=== PATIENT | male | born 1960 | race Caucasian/White ===

== ENCOUNTER 2017-09-26 07:19 | Observation (INO) | payer OTHER ==
[~2017-09-26 07:19] MED LIST: Buffered Lidocaine 0.9% SYRIN* 5 ML/SYR SYRINGE INTRADERM ONE; Famotidine TAB* 20 MG PO ONE
[2017-09-26] MEDS ORDERED: ceFAZolin 2 GM PREMIX (*) 2 GM/50 ML BAG IVPB ONE (07:44)
[2017-09-26] MEDS ORDERED: Famotidine IV* 10 MG/ML 2 ML (20 mg) ONE (07:44)
[2017-09-26] MEDS ORDERED: Metoclopramide IV* 5 MG/ML 2 ML VIAL ONE (08:00)
[2017-09-26] MEDS ORDERED: Ondansetron ODT TAB* 4 MG ONE (08:26)
[2017-09-26] MEDS ORDERED: Propofol* 10 MG/ML 20 ML BTL IV PUSH ONE ×2 (08:26→10:05)
[2017-09-26] MEDS ORDERED: Dexamethasone IV* 4 MG/ML 1 ML (4 MG) ONE (08:26)
[2017-09-26] MEDS ORDERED: Lidocaine 2% PF * 5 ML VIAL ONE (08:26)
[2017-09-26] MEDS ORDERED: Artificial Tear OPHTH.OINT* 3.5 GM ONE (08:26)
[2017-09-26] MEDS ORDERED: Cisatracurium* 2 MG/ML MDV 5 ML ONE (08:27)
[2017-09-26] MEDS ORDERED: fentaNYL* 50 MCG/ML 2 ML VIAL (100 MCG VIAL) ONE ×3 (08:27→13:33)
[2017-09-26] MEDS ORDERED: Midazolam* 1 MG/ML 5 ML VIAL (5 MG) ONE (08:27)
[2017-09-26] MEDS ORDERED: HYDROmorphone INJ* 1 MG/ML CARPUJECT SYRINGE ONE ×2 (08:45→12:24)
[2017-09-26] MEDS ORDERED: Lidocaine 1% MPF wEPI 200,000* 30 ML SDV ONE (09:29)
[2017-09-26] MEDS ORDERED: Thrombin 5,000 UNITS* 1 APPLIC KIT - topical use - TOPICAL ONE (09:29)
[2017-09-26] MEDS ORDERED: Bacitracin IV* 50,000 UNITS INJ ONE (09:30)
[2017-09-26] MEDS ORDERED: EPHEDrine (Pressors)* 50 MG/ML VIAL ONE (10:04)
[2017-09-26] MEDS ORDERED: Naloxone* 0.4 MG/ML 1 ML VIAL IV PRN (10:40)
[2017-09-26] MEDS ORDERED: Ondansetron ODT TAB* 4 MG PO PRN (10:40)
[2017-09-26] MEDS ORDERED: HYDROmorphone INJ* 2 MG/ML CARPUJECT SYRINGE IV PRN (10:40)
[2017-09-26] MEDS ORDERED: Ondansetron 40 MG VIAL* 2 MG/ML 20 ML VIAL IV PRN (12:12)
[2017-09-26] MEDS ORDERED: Acetaminophen TAB* 325 MG PO PRN (12:12)
[2017-09-26] MEDS ORDERED: Magnesium Hydroxide LIQ* 30 ML UDC PO PRN (12:12)
[2017-09-26] MEDS: fentaNYL* 50 MCG/ML 2 ML VIAL (100 MCG VIAL) IV PRN ×3 (12:28→13:34)
--- NOTE | 2017-09-26 12:44 | RAD ---
Indication: Intraoperative images for anterior cervical discectomy and fusion. Comparison: No relevant prior exams available on the [facility] for comparison. Technique: Portable lateral radiographs of the cervical spine were obtained at 1012, 1023, and 1210 hours Report: 1012 hours exam documents an anterior metallic instrument at the cephalocaudal level of the C6 vertebral body. Endotracheal tube and probable temperature sensor probe noted. 1023 hours exam documents an anterior instrument at the level of the anterior aspect of the C4-C5 disc space. 1210 hours exam documents an anterior cortical plate spanning from C5 to C7 with vertebral body screws at C5, C6, and C7. IMPRESSION: Intraoperative control films.
[2017-09-26] MEDS ORDERED: HYDROcodone/ACETAMIN 5-325 MG* 1 TAB ONE (13:16)
[2017-09-26] MEDS: HYDROcodone/ACETAMIN 5-325 MG* 1 TAB PO PRN ×3 (13:23→21:38)
[2017-09-26] MEDS: DULoxetine DR CAP* 30 MG CAP.DR PO SCH (20:56)
[2017-09-27] MEDS: HYDROcodone/ACETAMIN 5-325 MG* 1 TAB PO PRN ×3 (01:49→09:34)
[2017-09-27 07:54] VITALS: BP 169/101
[2017-09-27] MEDS: DULoxetine DR CAP* 30 MG CAP.DR PO SCH (07:54)
--- NOTE | 2017-09-27 08:18 | PN ---
Progress Note - Progress Note Date of Service: 09/27/17 SOAP: Subjective: [S/p ACD F C5-6 and C6-7, POD #1. Patient feeling well, pre-op symptoms improved. Posterior neck soreness. Ambulating well. Eating soft foods without difficulty. Pain controlled with PO pain meds. ] Objective: [ Vital Signs: Temp Pulse Resp BP Pulse Ox 97.7 F 61 20 169/101 98 09/27/17 07:16 09/27/17 07:16 09/27/17 07:54 09/27/17 07:16 09/27/17 07:54 General: Alert, no distress. Sitting comfortably in bed. Neuro: Motor and sensory intact. Incision: Intact and without swelling. Wound drain discontinued today without complication. ] Assessment: [Satisfactory post-op course. ] Plan: [1. Discharge home today. 2. Discharge instructions discussed with the patient. ]
--- NOTE | 2017-10-05 12:14 | OP ---
DATE OF OPERATION: 09/26/17 - ROOM #334 DATE OF : 60 PRIMARY SURGEON: Sancho Oro MD CARPENTERS: DANNY Garner ANESTHESIA: General. PRE-OP DIAGNOSIS: Cervical spondylosis C5-6, C6-7. POST-OP DIAGNOSIS: Cervical spondylosis C5-6, C6-7. OPERATIVE PROCEDURE: Anterior cervical diskectomy and allograft fusion C5-6, C6 -7. DESCRIPTION OF PROCEDURE: After satisfactory general anesthesia was obtained, the patient was placed on the operating table in the supine position with the head supported on a horseshoe headrest and the neck slightly extended. The anterior aspect of the neck was shaved, prepped, and draped in sterile manner for anterior cervical exposure and a skin incision was outlined over the C6 vertebral body as assisted with a guest experience specialist radiograph. This incision was infiltrated with 1% Xylocaine with epinephrine, after which it was turned down sharply through the subcutaneous tissues. A superiorly and inferiorly based subcutaneous flap was then fashioned and the platysma muscle divided along the direction of its fibers. Utilizing a combination of sharp and blunt dissection , a dissection plane was carried out down between the sternocleidomastoid and strap muscles down to the anterior aspect of the spine. An intraoperative x- ray was obtained verifying the localization of the C4-5 level, an additional inferior exposure was obtained until the C4-6 and C6-7 levels were dissected free. Attention was first directed to the C5-6 level where large anterior osteophyte was initially decompressed with a Midas Kwaku drill. Self- retaining retractors were placed to facilitate exposure. The initial step in the procedure was removal of the anterior two-thirds of disk material from this level. This was done with a combination of the Midas Kwaku drill, angled curettes , and pituitary rongeurs. [place] distractor pins were then placed in C5 and C6 vertebral bodies and gentle disk space distraction applied. The operating microscope was then brought into the field and the remainder of the procedure done under microscopic visualization. Projecting back posteriorly was a significant spur primarily coming out the superior aspect of C6. This was decompressed with a combination of Midas Kwaku drill as well as 1- and 2-mm Kerr[place] rongeurs. This was carried back until normal dura was encountered. At the conclusion of the decompression, a nerve hook would go out readily with both C6 nerve roots. A 7-mm bone graft was then selected and filled with bony matrix and slightly countersunk. Attention was then directed to the C6-7 level where even a larger anterior osteophyte was decompressed. The anterior two- thirds of disk material was removed from this level and [place] distractor pins were placed, however, no distraction actually occurred, so they were removed. Utilizing microdissection, the even more prominent spur at this level was decompressed utilizing Midas Kwaku drill as well as 1 and 2-mm [place]. This again was carried back until normal dura was encountered. Both C7 nerve roots were felt to be free. An 8-mm graft was selected, filled with bony matrix and slightly countersunk at this level. The osteophytes were then drilled down, so that a flat surface was achieved from C5-C7. This enabled placement of a [employer] Zevo plate and secured into the C5-C6 and C7 vertebral bodies by 13- mm self-drilling screws. A post construct x-ray showed the screws in C5 to be somewhat inferior in location and these were repositioned and a second x- ray showed better positioning of the screws. The wound was then thoroughly irrigated, after which a drain was placed in the prevertebral space and tunneled out toward the right side. The subcutaneous tissues were then reapproximated with 3-0 Vicryl and the skin closed with Steri-Strips. The estimated blood loss was than 50 cc and the final sponge, padding, and needle counts were correct. The patient was taken to the recovery room extubated, and in stable condition. [id number]/[facility] #: [id number] MAINOR
== END 2017-09-27 09:45 | disposition home or self-care (01) ==
LOC: OR 07:19 → SSU 14:30
PROVIDERS: ADMIT Neurological Surgery; ATTEND Neurological Surgery
PROC: 0RG20K0 Fusion of 2 or more Cervical Vertebral Joints with Nonautologous Tissue Substitute, Anterior Approach, Anterior Column, Open Approach (ICD-10-PCS; 2017-09-26)
PROC: 0RB30ZZ Excision of Cervical Vertebral Disc, Open Approach (ICD-10-PCS; principal; 2017-09-26 08:45)
DX: M47.892 Other spondylosis, cervical region (principal)
CPT/HCPCS: 72020; A9270-GY; C1713; C1776; G0378; J0690; J1100; J1170; J2001; J2250; J2704; J2765; J3010